=== PATIENT | male | born 1960 | race Caucasian/White ===

== ENCOUNTER 2023-02-18 07:34 | Day surgery (SDC) | payer BC ==
[~2023-02-18 07:34] MED LIST: ferumoxytoL 510 MG in Sodium Chloride 0.9% 100 ML IV ONE
[2023-02-18] MEDS ORDERED: Lidocaine 2% 5 ML SDV ONE (07:50)
[2023-02-18] MEDS ORDERED: Propofol 200 MG/20 ML SDV ONE ×2 (07:51→08:09)
[2023-02-18] MEDS ORDERED: Lactated Ringers 1,000 ML IV SCH (08:00)
== END 2023-02-18 09:25 | disposition home or self-care (01) ==
LOC: MW.SDS 07:34
PROVIDERS: ATTEND Surgery
DX: D12.3 Benign neoplasm of transverse colon (principal); K29.50 Unspecified chronic gastritis without bleeding; K31.A0 Gastric intestinal metaplasia, unspecified; K20.0 Eosinophilic esophagitis; K44.9 Diaphragmatic hernia without obstruction or gangrene; K64.8 Other hemorrhoids; N40.0 Benign prostatic hyperplasia without lower urinary tract symptoms; G89.29 Other chronic pain; Z79.899 Other long term (current) drug therapy; Z98.890 Other specified postprocedural states
CPT/HCPCS: 43239; 45385; J2704; J7120; J3490

== ENCOUNTER 2024-10-05 06:42 | Day surgery (SDC) | payer BC ==
[2024-10-05] MEDS ORDERED: Lidocaine 2% 5 ML SDV ONE (07:12)
[2024-10-05] MEDS: Lactated Ringers 1,000 ML IV SCH (07:12)
[2024-10-05] MEDS ORDERED: Propofol 200 MG/20 ML SDV ONE (07:12)
== END 2024-10-05 08:50 | disposition home or self-care (01) ==
LOC: MW.SDS 06:42
PROVIDERS: ATTEND Surgery
DX: K29.50 Unspecified chronic gastritis without bleeding (principal); K22.70 Barrett's esophagus without dysplasia; K20.90 Esophagitis, unspecified without bleeding; K44.9 Diaphragmatic hernia without obstruction or gangrene; I10 Essential (primary) hypertension; N40.0 Benign prostatic hyperplasia without lower urinary tract symptoms; Z79.899 Other long term (current) drug therapy
CPT/HCPCS: 43239; J2704; J7120; 00731; J3490